=== PATIENT | male | born 1965 | race Caucasian/White ===

== ENCOUNTER 2017-04-19 07:16 | Outpatient (CLI) | payer BC ==
[2017-04-19] VITALS (10 sets, daily range): BP systolic 94–115; BP diastolic 47–65; PULSE 56–87; TEMP 99
[~2017-04-19] VITALS: Ht 180.3 cm; Wt 98.0 kg
[2017-04-19 07:42] LABS: HEMATOCRIT 37.8 % (42.0-52.0); HEMOGLOBIN 12.2 g/dl (13.5-18.0); MEAN CELL VOLUME 89 fl (80.0-100.0); MEAN CORPUSCULAR HEMOGLOBIN 29 pg (27.0-31.0); MEAN CORPUSCULAR HGB CONC 32 g/dl (33.0-37.0); MEAN PLATELET VOLUME 10.9 fl (7.4-10.4); PLATELET COUNT 236 K/mm3 (130-400); RED BLOOD COUNT 4.23 M/mm3 (4.20-5.60); REDCELL DISTRIBUTION WIDTH-CV 14.2 % (11.5-14.5); WHITE BLOOD COUNT 11.4 K/mm3 (4.8-10.8)
[2017-04-19 07:47] LABS: INR 1.2 (0.8-3.0)
[2017-04-19 07:56] LABS: CREATININE, serum 0.99 mg/dL (0.66-1.25); POTASSIUM 4.1 mmol/L (3.4-5.0)
[2017-04-19] MEDS ORDERED: COMPLETE MULTI1 TAB PO (08:21)
[2017-04-19] MEDS ORDERED: CIALIS20 MG PO (08:21)
[2017-04-19] MEDS ORDERED: [UNRECOGNIZED DRUG - OTHER] PO (08:22)
[2017-04-19] MEDS ORDERED: [UNRECOGNIZED DRUG - OTHER] PO (08:23)
[2017-04-19] MEDS ORDERED: [UNRECOGNIZED DRUG - OTHER] PO (08:24)
== END 2017-04-19 11:30 | disposition home or self-care (01) ==
LOC: COL.RAD 07:16
PROVIDERS: Internal Medicine Cardiovascular Disease
DX: I08.1 Rheumatic disorders of both mitral and tricuspid valves (principal); I77.89 Other specified disorders of arteries and arterioles; F17.200 Nicotine dependence, unspecified, uncomplicated; I70.0 Atherosclerosis of aorta; Z95.1 Presence of aortocoronary bypass graft; Z95.828 Presence of other vascular implants and grafts
CPT/HCPCS: G9654; J2704

== ENCOUNTER 2017-07-25 19:54 | Inpatient (IN) | payer BC ==
[~2017-07-25] VITALS: Ht 177.8 cm; Wt 100.7 kg
[~2017-07-25 19:54] MED LIST: ASPIRIN E.C. 8181 MG PO; CIALIS20 MG PO; COMPLETE MULTI1 TAB PO; COREG 3.123.125 MG/T PO; LASIX 40MG TABL40 MG PO; VASOTEC 2.2.5 MG/TAB PO; [UNRECOGNIZED DRUG - OTHER] PO; [UNRECOGNIZED DRUG - OTHER] PO; [UNRECOGNIZED DRUG - OTHER] PO
[2017-07-25 20:42] LABS: BASO # 0.1 (0.0-0.2); BASO % 1.3 % (0.0-2.0); EOS # 0.2 (0.0-0.7); EOS % 2.1 % (0-4.0); GRAN % 63.7 % (42.2-75.2); HEMATOCRIT 40.8 % (42.0-52.0); LYMPH # 1.6 (1.2-3.4); LYMPH % 21.1 % (20.0-51.0); MEAN CELL VOLUME 86 fl (80.0-100.0); MEAN CORPUSCULAR HEMOGLOBIN 28 pg (27.0-31.0); MEAN CORPUSCULAR HGB CONC 32 g/dl (33.0-37.0); MEAN PLATELET VOLUME 11.3 fl (7.4-10.4); MONO # 0.9 (0.1-0.6); MONO % 11.4 % (1.7-9.3); PLATELET COUNT 191 K/mm3 (130-400); RED BLOOD COUNT 4.72 M/mm3 (4.20-5.60); WHITE BLOOD COUNT 7.8 K/mm3 (4.8-10.8)
[2017-07-25 20:50] LABS: ADJUSTED CALCIUM 9.2 mg/dL (8.4-10.2); ALBUMIN 3.5 gm/dL (3.5-5.0); BILIRUBIN,TOTAL 2.1 mg/dL (0.0-1.0); CALCIUM 8.8 mg/dL (8.4-10.2); CREATININE, serum 1.12 mg/dL (0.66-1.25); POTASSIUM 3.9 mmol/L (3.4-5.0); TOTAL PROTEIN 6.7 gm/dL (6.4-8.2)
[2017-07-25 21:05] LABS: TROPONIN-I 0.056 ng/mL (0.000-0.034)
[2017-07-25 23:55] VITALS: BP 103/47; PULSE 86; TEMP 98.4
[2017-07-26 02:11] VITALS: BP 91/45; PULSE 83; TEMP 97.7
[2017-07-26 06:01] VITALS: BP 117/63; PULSE 80; TEMP 98.2
[2017-07-26 06:19] LABS: INR 1.3 (0.8-3.0)
[2017-07-26 06:21] LABS: BILIRUBIN,TOTAL 1.8 mg/dL (0.0-1.0); CALCIUM 8.9 mg/dL (8.4-10.2); CREATININE, serum 1.09 mg/dL (0.66-1.25)
[2017-07-26 06:37] LABS: TROPONIN-I 0.057 ng/mL (0.000-0.034)
[2017-07-26 09:33] VITALS: BP 89/41; PULSE 78; TEMP 98.2
[2017-07-26 11:14] VITALS: BP 117/40; PULSE 80
[2017-07-26 18:48] VITALS: BP 115/46; PULSE 87; TEMP 98.1
[2017-07-26 21:15] VITALS: BP 107/43; PULSE 83; TEMP 98.8
[2017-07-27 01:38] VITALS: BP 111/69; PULSE 72; TEMP 98.2
[2017-07-27 05:26] VITALS: BP 106/53; PULSE 88; TEMP 98.2
[2017-07-27 06:20] LABS: BASO # 0.1 (0.0-0.2); EOS # 0.1 (0.0-0.7); EOS % 1.8 % (0-4.0); GRAN # 4.9 (1.4-6.5); GRAN % 62.2 % (42.2-75.2); HEMATOCRIT 39.5 % (42.0-52.0); HEMOGLOBIN 12.4 g/dl (13.5-18.0); LYMPH # 1.7 (1.2-3.4); LYMPH % 21.7 % (20.0-51.0); MEAN CELL VOLUME 86 fl (80.0-100.0); MEAN CORPUSCULAR HEMOGLOBIN 27 pg (27.0-31.0); MEAN CORPUSCULAR HGB CONC 31 g/dl (33.0-37.0); MEAN PLATELET VOLUME 11.9 fl (7.4-10.4); MONO % 12.8 % (1.7-9.3); PLATELET COUNT 183 K/mm3 (130-400); RED BLOOD COUNT 4.61 M/mm3 (4.20-5.60); WHITE BLOOD COUNT 7.9 K/mm3 (4.8-10.8)
[2017-07-27 06:30] LABS: CREATININE, serum 1.07 mg/dL (0.66-1.25); MAGNESIUM 1.8 mg/dL (1.6-2.3); POTASSIUM 3.5 mmol/L (3.4-5.0)
[2017-07-27 09:04] VITALS: BP 110/51; PULSE 87; TEMP 98.2
[2017-07-27 13:57] VITALS: BP 106/52; PULSE 84; TEMP 97.9
[2017-07-27 17:53] VITALS: BP 116/48; PULSE 88; TEMP 98.3
[2017-07-27 21:43] VITALS: BP 103/46; PULSE 85; TEMP 99.2
[2017-07-28 01:17] VITALS: BP 110/58; PULSE 92; TEMP 97.8
[2017-07-28 05:49] VITALS: BP 100/42; PULSE 80; TEMP 98.4
[2017-07-28 09:03] VITALS: BP 103/45; PULSE 80; TEMP 98.1
[2017-07-28 10:52] LABS: CALCIUM 9.1 mg/dL (8.4-10.2); CREATININE, serum 1.07 mg/dL (0.66-1.25); POTASSIUM 3.5 mmol/L (3.4-5.0)
[2017-07-28 13:53] VITALS: BP 109/53; PULSE 78; TEMP 98.7
[2017-07-28] MEDS ORDERED: LASIX 40MG TABL40 MG PO (15:18)
== END 2017-07-28 16:35 | disposition home or self-care (01) | DRG 282 ==
LOC: COL.ER 19:54 → SURG 21:45
PROVIDERS: Emergency Medicine; Internal Medicine; Physician Assistant
DX: I11.0 Hypertensive heart disease with heart failure (principal); I21.A1 Myocardial infarction type 2; I50.23 Acute on chronic systolic (congestive) heart failure; I25.10 Atherosclerotic heart disease of native coronary artery without angina pectoris; F17.210 Nicotine dependence, cigarettes, uncomplicated; Z95.2 Presence of prosthetic heart valve; Z95.1 Presence of aortocoronary bypass graft
CPT/HCPCS: 99223-AI; 99232-AI; 99239; J1940

== ENCOUNTER 2017-10-18 15:45 | Outpatient (RCR) | payer BC | END 2017-10-28 15:02 | disposition home or self-care (01) | LOC: COL.CR 15:45 | DX: Z48.812 Encounter for surgical aftercare following surgery on the circulatory system (principal); Z95.4 Presence of other heart-valve replacement ==

== ENCOUNTER → 2017-11-08 | Outpatient (CLI) | payer BC | LOC: ZCOL.LAB 12:15 | DX: N15.1 Renal and perinephric abscess (principal) ==

== ENCOUNTER → 2018-11-13 | Outpatient (CLI) | payer BC | LOC: COL.RAD 07:07 | DX: G51.0 Bell's palsy (principal) | CPT/HCPCS: A9585 ==

== ENCOUNTER 2024-02-24 09:58 | Inpatient (IN) | payer BC ==
[~2024-02-24] VITALS: Ht 177.8 cm; Wt 95.3 kg
[~2024-02-24 09:58] MED LIST changes: +LIPITOR 40MG TA40 MG PO; +NICODERM C21 MG/PATC TD; +OMEGA-3 FISH1000 MG PO
[2024-02-24 12:07] LABS: URINE APPEARANCE CLEAR (CLEAR/HAZY); URINE BLOOD NEGATIVE (NEGATIVE); URINE COLOR YELLOW (YELLOW); URINE GLUCOSE NEGATIVE (NEGATIVE); URINE KETONE TRACE (NEGATIVE); URINE NITRATE NEGATIVE (NEGATIVE); URINE PROTEIN(semi-quant) NEGATIVE (NEGATIVE)
[2024-02-24 12:26] LABS: ALBUMIN 2.9 g/dL (3.5-5.0); BILIRUBIN,TOTAL 0.6 mg/dL (0.2-1.2); C-REACTIVE PROTEIN 12.13 mg/dL (0.00-0.50); CALCIUM 9.3 mg/dL (8.4-10.2); CREATININE, serum 0.98 mg/dL (0.72-1.25); POTASSIUM 3.9 mEq/L (3.5-4.5); TOTAL PROTEIN 7.4 g/dl (6.2-8.1)
[2024-02-24 12:33] LABS: HEMATOCRIT 40.5 % (42.0-52.0); MEAN CELL VOLUME 89 fl (80.0-100.0); MEAN CORPUSCULAR HEMOGLOBIN 29 pg (27-31); MEAN CORPUSCULAR HGB CONC 32 g/dl (33.0-37.0); MEAN PLATELET VOLUME 10.8 fl (7.4-10.4); PLATELET COUNT 259 K/mm3 (130-400); RED BLOOD COUNT 4.53 M/mm3 (4.20-5.60); REDCELL DISTRIBUTION WIDTH-CV 12.5 % (11.5-14.5)
[2024-02-24 12:43] LABS: COLLECTION METHOD CATHETER
[2024-02-24] MEDS ORDERED: Iohexol 300 - 100 ML VIAL IV ONE (12:45)
[2024-02-24] MEDS ORDERED: NS 100 ML IV SCH (12:45)
[2024-02-24 13:00] VITALS: BP_SYST 106
[2024-02-24 13:36] LABS: LYMPHOCYTE 9 % (20.0-51.0); NEUTROPHILS 80 % (42.0-75.2)
[2024-02-24 13:37] LABS: PLATELET ESTIMATE NORMAL (NORMAL)
[2024-02-24 15:53] VITALS: BP 106/67; PULSE 73; TEMP 99
[2024-02-24 16:16] VITALS: BP_SYST 106
[2024-02-24] MEDS ORDERED: Carvedilol 3.125 MG TAB PO SCH (16:33)
[2024-02-24] MEDS ORDERED: Atorvastatin 40 MG TAB PO SCH (16:34)
[2024-02-24] MEDS ORDERED: Omega-3 Fatty Acid Esters (OTC) 1,000 MG CAP PO SCH (16:34)
[2024-02-24] MEDS ORDERED: Heparin 5,000 UNITS/ML 1 ML VIAL SQ SCH (16:35)
--- NOTE | 2024-02-24 16:54 | NUR ---
PATIENT ARRIVED TO SURGICAL FLOOR AT APPROX 1515. PATIENT IS ALERT AND ORIENTED. INTAKE ASSESSMENT COMPLETE. MED REC COMPLETE. PATIENT DENIES PAIN OR DISCOMFORT AT THIS TIME. PANDA DRAINING DEPENDENTLY WITH CLEAR YELLOW URINE NOTED. PATIENT ADVISED TO CALL WHEN GETTING UP, D/T IV POLE. PATIENT IN UNDERSTANDING. CALL LIGHT WITHIN REACH.
--- NOTE | 2024-02-24 18:27 | NUR ---
THIS NURSE COMPLETED ASSESSMENT. BUTTOCKS IS CDI, WITH ERYTHEMA NOTED CLOSER TO THE RETAL AREA. WARM AND FIRM TO TOUCH. UNABLE TO GET WOULD CULTURE THERE ARE NO OPEN AREAS.
[2024-02-24 19:14] VITALS: BP 90/50; PULSE 74; TEMP 101
--- NOTE | 2024-02-24 20:00 | NUR ---
PATIENT IS A&O. VSS ON TELE. REPORTS MILD PERIRECTAL DISCOMFORT, DENIES NEED FOR PAIN MEDS. NOTED SLIGHT REDNESS AT PERIRECTAL AREA, NO EXTERNAL ABSCESS NOTED. PANDA TO DD WITH MOD AMOUNTS OF YELLOW URINE. IV ABX INFUSING VIA PUMP INTO RIGHT AC IV. HEAD TO TOE ASSESSMENT COMPLETE. NO OTHER NEEDS AT THIS TIME. CALL LIGHT IN REACH.
[2024-02-24 23:01] VITALS: BP 99/64; PULSE 77; TEMP 100.5
[2024-02-25] VITALS (12 sets, daily range): BP systolic 87–105; BP diastolic 53–66; PULSE 64–69; TEMP 98.2–99.9
[2024-02-25] MEDS ORDERED: Vancomycin 1.5 GM,Special Dose/Pharmacy Prepared 1.5 GM in NS 250 ML IV SCH (03:00)
[2024-02-25 07:10] LABS: HEMATOCRIT 37.8 % (42.0-52.0); HEMOGLOBIN 12.4 g/dl (13.5-18.0); MEAN CELL VOLUME 89 fl (80.0-100.0); MEAN CORPUSCULAR HEMOGLOBIN 29 pg (27-31); MEAN CORPUSCULAR HGB CONC 33 g/dl (33.0-37.0); MEAN PLATELET VOLUME 11.3 fl (7.4-10.4); PLATELET COUNT 226 K/mm3 (130-400); RED BLOOD COUNT 4.25 M/mm3 (4.20-5.60); REDCELL DISTRIBUTION WIDTH-CV 12.5 % (11.5-14.5)
[2024-02-25 07:46] LABS: POTASSIUM 4.1 mEq/L (3.5-4.5)
[2024-02-25 07:48] LABS: BAND 5 % (0-10); EOSINOPHIL 1 % (0-4); LYMPHOCYTE 5 % (20.0-51.0); NEUTROPHILS 82 % (42.0-75.2); PLATELET ESTIMATE NORMAL (NORMAL)
[2024-02-25 08:10] LABS: ALBUMIN 2.4 g/dL (3.5-5.0); CALCIUM 8.8 mg/dL (8.4-10.2); CREATININE, serum 0.84 mg/dL (0.72-1.25); PHOSPHOROUS 2.8 mg/dL (2.3-4.7)
--- NOTE | 2024-02-25 10:12 | NUR ---
chip loft worker met with pt to discuss intake information. He reports to live with his fiancee, Roselyn [phone] in [place]. He sees Dr. Espinoza for PCP needs and obtains medications from [facility] with no difficulties. He reports to be independent with ADLS and uses no DME. He does not have a DPOA-HC. SW informed him that his son, Javed Ribera [phone] would be NOK. Pt was agreeable to this and was fine with it at this time. Discharge Plan: home
--- NOTE | 2024-02-25 11:13 | NUR ---
PATIENT ALERT AND ORIENTED X4. VSS. PATIENT HERE FOR PERIRECTAL ABSCESS. IV TO RIGHT AC INT AND FLUSHES WELL. PATIENT TOLERATING PO. PATIENT DENIES ANY PAIN. NO FURTHER NEEDS. CALL LIGHT IN REACH.
--- NOTE | 2024-02-25 15:07 | NUR ---
D: Clinical Support Nurse stopped by room on rounds. A: Pt was resting and content. Pt has no needs right now. Pt appreciated the visit. P: Clinical Support Nurse informed pt that if he needed anything from the horse race starter area to let his nurse know. Clinical Support Nurse will follow up as needed.
--- NOTE | 2024-02-25 17:48 | NUR ---
RADIOLOGY CALLED TO REPORT THAT PATIENT NEEDS TO BE NPO FOR ULTRASOUND. RADIOLOGY REPORTS ULTRASOUND WILL BE PERFORMED TOMORROW MORNING PRIOR TO BREAKFAST.
--- NOTE | 2024-02-25 19:58 | NUR ---
SHIFT ASSESSMENT COMPLETE. VSS. PATIENT RESTING IN BED WATCHING TV. ALL NIGHT MEDS GIVEN PER ORDERS. PATIENT AMBULTING INDPENDENTLY AROUND ROOM AND IN HALLWAY. PATIENT STATES PAIN 2/10 MORE WITH THE CATHER THAN IN HIS LEFT BUTT CHEEK AND ONLY WITH MOVMENT. PATIENT HAS NO OTHER CONCERNS OR REQUEST AT THIS TIME. CALL LIGHT IN REACH.
[2024-02-25] MEDS ORDERED: FLOMAX 0.40.4 MG/CAP PO (20:15)
[2024-02-26] VITALS (19 sets, daily range): BP systolic 96–125; BP diastolic 50–77; PULSE 57–68; TEMP 97.4–98.6
--- NOTE | 2024-02-26 05:43 | NUR ---
PATIENT WAS ABLE TO GET SOME SLEEP THROUGH THE NIGHT. PATIENT HAS NO REQUEST OR CONCERNS AT THIS TIME. CALL LIGHT IN REACH
[2024-02-26 06:31] LABS: BASO # 0.1 K/mm3 (0.0-0.2); BASO % 0.3 % (0.0-2.0); EOS # 0.3 K/mm3 (0.0-0.7); EOS % 1.9 % (0.0-4.0); GRAN # 11.2 K/mm3 (1.4-6.5); LYMPH # 1.6 K/mm3 (1.2-3.4); LYMPH % 10.7 % (20.0-51.0); MEAN CELL VOLUME 89 fl (80.0-100.0); MEAN CORPUSCULAR HEMOGLOBIN 29 pg (27-31); MEAN CORPUSCULAR HGB CONC 33 g/dl (33.0-37.0); MEAN PLATELET VOLUME 11.1 fl (7.4-10.4); MONO # 1.4 K/mm3 (0.1-0.6); MONO % 9.6 % (1.7-9.3); PLATELET COUNT 222 K/mm3 (130-400); REDCELL DISTRIBUTION WIDTH-CV 12.5 % (11.5-14.5)
[2024-02-26 06:43] LABS: HEMATOCRIT 36.6 % (42.0-52.0)
[2024-02-26 06:58] LABS: ALBUMIN 2.4 g/dL (3.5-5.0); BILIRUBIN,TOTAL 0.5 mg/dL (0.2-1.2); CREATININE, serum 0.84 mg/dL (0.72-1.25); MAGNESIUM 2.1 mg/dL (1.6-2.6); TOTAL PROTEIN 6.6 g/dl (6.2-8.1)
--- NOTE | 2024-02-26 07:02 | NUR ---
Report received. Pt is awake and laying in bed comfortably. Pt does not complain of pain at this time. Zosyn running at 25 ml/hr. No other concerns at this time. Call light within reach.
--- NOTE | 2024-02-26 09:55 | NUR ---
0900 - Pt awake and sitting up in bed for morning assessment and med pass. Pt expressing concerns about going home with catheter, education provided at this time. Pt does not complain of pain at this time. No other concerns. Call light within reach.
--- NOTE | 2024-02-26 12:23 | NUR ---
Dr Barriga in to see pt, discussed plan to I&D perirectal abscess. Plan is to perform at bedside. Dr Barriga in with pt at this time
[2024-02-26] MEDS ORDERED: Iohexol 300 - 100 ML VIAL IV ONE (12:56)
--- NOTE | 2024-02-26 13:12 | NUR ---
Pt off of floor - at CT.
[2024-02-26] MEDS ORDERED: LR 1,000 ML IV SCH (15:30)
[2024-02-26] MEDS ORDERED: Morphine 2 MG/1 ML VIAL [PACU/SDC ONLY] IV PRN (17:30)
[2024-02-26] MEDS ORDERED: hydrALAZINE 20 MG/ML 1 ML VIAL IV PRN (17:30)
[2024-02-26] MEDS ORDERED: fentaNYL 50 MCG/ML 1 ML SYRINGE/VIAL [PACU/SDC ONLY] IV PRN (17:30)
[2024-02-26] MEDS ORDERED: Ondansetron 4 MG/2 ML VIAL IV PRN (17:30)
[2024-02-26] MEDS ORDERED: HYDROmorphone 1 MG/1 ML SYRINGE [PACU/SDC ONLY] IV PRN (17:30)
[2024-02-26] MEDS ORDERED: fentaNYL 50 MCG/ML 2 ML VIAL ONE ×2 (17:33→17:58)
[2024-02-26] MEDS ORDERED: Lidocaine PF 2% (20 MG/ML) 5 ML VIAL ONE (17:33)
[2024-02-26] MEDS ORDERED: Ondansetron 4 MG/2 ML VIAL ONE (17:33)
[2024-02-26] MEDS ORDERED: dexAMETHasone 10 MG/ML VIAL ONE (17:33)
--- NOTE | 2024-02-26 17:39 | NUR ---
Pt off of unit - currently at surgery for procedure.
[2024-02-26] MEDS ORDERED: Lidocaine 1% w EPI (1:100,000) 20 ML Multi-Dose VIAL IJ ONE (18:06)
--- NOTE | 2024-02-26 19:10 | NUR ---
Patient arrived to room 343 via bed from PACU. VS stable-BP is soft at 90s/60s. Assessment complete. A&Ox3. Currenlty on O2@3L/NC-O2 sat onn arrival dropped down to 86% on ra. Currently 93%. Rating pain 4/10 to rectum. No nausea. Provided meal. Will monitor.
[2024-02-27] VITALS (7 sets, daily range): BP systolic 105–127; BP diastolic 64–73; PULSE 56–58; TEMP 97.7–97.9
--- NOTE | 2024-02-27 00:07 | NUR ---
Patient resting in bed eyes closed. No s/s of pain or discomfort noted. Will monitor.
--- NOTE | 2024-02-27 05:51 | NUR ---
Patient had an uneventful night. Rated pain 2-4/10-denied need for intervention. Dressing to rectum remained CDI. INT to left hand flushes well-no s/s of infiltration noted. Tolerated diet. Denies current questions/concerns. Call light in reach. Will monitor.
[2024-02-27 06:09] LABS: BASO % 0.3 % (0.0-2.0); EOS % 0.3 % (0.0-4.0); GRAN # 13.9 K/mm3 (1.4-6.5); GRAN % 88.3 % (42.2-75.2); HEMOGLOBIN 12.4 g/dl (13.5-18.0); LYMPH # 1.1 K/mm3 (1.2-3.4); LYMPH % 6.9 % (20.0-51.0); MEAN CELL VOLUME 89 fl (80.0-100.0); MEAN CORPUSCULAR HEMOGLOBIN 29 pg (27-31); MEAN CORPUSCULAR HGB CONC 33 g/dl (33.0-37.0); MEAN PLATELET VOLUME 10.8 fl (7.4-10.4); MONO # 0.6 K/mm3 (0.1-0.6); MONO % 3.8 % (1.7-9.3); PLATELET COUNT 246 K/mm3 (130-400); RED BLOOD COUNT 4.29 M/mm3 (4.20-5.60); REDCELL DISTRIBUTION WIDTH-CV 12.4 % (11.5-14.5)
[2024-02-27 06:28] LABS: CALCIUM 9.5 mg/dL (8.4-10.2); CREATININE, serum 0.86 mg/dL (0.72-1.25); MAGNESIUM 2.2 mg/dL (1.6-2.6); POTASSIUM 4.4 mEq/L (3.5-4.5)
--- NOTE | 2024-02-27 06:58 | NUR ---
Report received. Pt awake, laying down in bed. Pt does not complain of pain. No other concerns at this time. Call light within reach.
--- NOTE | 2024-02-27 09:09 | NUR ---
Pt awake, sitting up in bed for morning assessment and med pass. Zosyn running 25 ml/hr. Pt does not complain of pain at this time, stating that the surgery yesterday "relieved all the pressure." No other concerns at this time. Call light within reach.
[2024-02-27] MEDS ORDERED: DOXYCYCLINE HY100 MG PO (10:53)
--- NOTE | 2024-02-27 10:53 | NUR ---
farm worker attended clinical rounding and was informed pt will discharge home and is eager to discharge today. Discharge Plan: home
[2024-02-27] MEDS ORDERED: AMOXICILLIN 8751 TAB PO (10:54)
--- NOTE | 2024-02-27 12:06 | NUR ---
Reviewed discharge instructions with pt. Discussed catheter care, leg bag teaching etc. I did have him swich over his catheter bag to leg bag at transfer. INT removed and pt escorted out. Pt is driving himself.
== END 2024-02-27 12:07 | disposition home or self-care (01) | DRG 872 ==
LOC: COL.ER 09:58 → SURG 14:07
PROVIDERS: Nurse Practitioner; Physician Assistant; ADMIT Internal Medicine
DX: A41.9 Sepsis, unspecified organism (principal); K61.1 Rectal abscess; K56.609 Unspecified intestinal obstruction, unspecified as to partial versus complete obstruction; F17.210 Nicotine dependence, cigarettes, uncomplicated; N40.1 Benign prostatic hyperplasia with lower urinary tract symptoms; R33.8 Other retention of urine; I10 Essential (primary) hypertension; E78.5 Hyperlipidemia, unspecified; K80.20 Calculus of gallbladder without cholecystitis without obstruction; I25.10 Atherosclerotic heart disease of native coronary artery without angina pectoris; K59.00 Constipation, unspecified; Z95.1 Presence of aortocoronary bypass graft; Z95.4 Presence of other heart-valve replacement; Z79.82 Long term (current) use of aspirin; Z79.899 Other long term (current) drug therapy
CPT/HCPCS: A4314; J1100; J1644; J2405; J2543; J2704; J3010; J3370; J7050; J7120; Q9967